=== PATIENT | male | born 1955 | race African-American/Black ===

== ENCOUNTER 2017-08-11 12:07 | Inpatient (IN) | payer OTHER ==
[2017-08-11 13:46] LABS: ALT (SGPT) Less than 7 U/L (8-55); AST (SGOT) 11 U/L (5-34); Albumin 3.4 g/dL (3.5-5.0); Alkaline Phosphatase 62 U/L (40-150); Anion Gap 22 mmol/L (10-20); BUN (Urea Nitrogen) 96 mg/dL (8.4-25.7); Bilirubin, Total 0.4 mg/dL (0.2-1.2); Calc. Creatinine Clearance 0 mL/min (70-130); Calcium 9.7 mg/dL (7.8-10.44); Carbon Dioxide 13 mmol/L (22-29); Chloride 103 mmol/L (98-107); Estimated GFR-MDRD 15; Glucose 75 mg/dL (70-105); Protein, Total 8.4 g/dL (6.0-8.3); Sodium 133 mmol/L (136-145)
[2017-08-11 13:55] LABS: #Eosinphils 0.3 thou/uL (0.0-0.7); #Lymphocytes 1.8 thou/uL (1.20-3.40); #Neutrophils 7.2 thou/uL (1.40-6.50); %Basophils 0.4 % (0.0-1.0); %Eosinophils 2.9 % (0.0-10.0); %Lymphocytes 17.6 % (21.0-51.0); %Monocytes 9.3 % (0.0-10.0); %Neutrophils 69.9 % (42.0-75.0); Hemoglobin 10.3 g/dL (14.0-18.0); Mean Corpuscular HGB CONC 32.2 g/dL (32.0-36.0); Mean Corpuscular Hemoglobin 29.3 pg (27.0-31.0); Mean Corpuscular Volume 90.9 fl (80.0-94.0); Mean Platelet Volume 5.7 fL (7.4-10.4); Platelet Count 357 thou/uL (130-400); RBC Distribution Width 14.1 % (11.5-14.5); Red Blood Cell (RBC) Count 3.51 mill/uL (4.70-6.10); White Blood Cell (WBC) Count 10.3 thou/uL (4.8-10.8)
[2017-08-11 14:21] LABS: Bilirubin Negative (Negative); Blood, Urine Large (Negative); Clarity CLOUDY (Clear); Glucose, Urine (Dipstick) Negative (Negative); Leukocyte Large (Negative); Nitrite Negative (Negative); Protein, Urine (Dipstick) 100 mg/dL (Neg-Trace); Specific Gravity, Urine 1.019 (1.002-1.036); Urobilinogen 0.2 mg/dL (0.2-1.0); pH, Urine 5.5 (5.0-9.0)
[2017-08-11 14:26] LABS: Bacteria/HPF 1+ HPF (None Seen); Hyaline Casts/LPF 0-3 HYALINE CAST LPF (0-3 Hyaline); Pathc Cast-AUWi Flag 0.13 (0-2.49); RBC/HPF GREATER THAN 50-TNTC HPF (0-3); Squamous Epithelial None Seen HPF (0-3)
--- NOTE | 2017-08-11 15:00 | RAD ---
PORTABLE CHEST: Date: 08/11/17 PROVIDED CLINICAL HISTORY: Cough. FINDINGS: Comparison made with the study dated 12/31/16. Cardiac and mediastinal silhouette is within normal limits. Lungs are free of suspicious opacity. The supine nature of the examination limits sensitivity for detection of pleural fluid and pneumothorax. Postoperative changes involving the lower thoracic spine again visualized. IMPRESSION: No evidence for an acute cardiopulmonary process with limitations as above. POS: MINDY
[2017-08-11] MEDS ORDERED: Sodium Chloride 0.9% 1,000 ML IV SCH ×3 (16:59→22:15)
[2017-08-11] MEDS ORDERED: Ondansetron ODT 4 MG TAB SL PRN (16:59)
[2017-08-11] MEDS ORDERED: Ondansetron HCl/PF 4 MG/2 ML Vial IVP PRN ×2 (16:59→17:52)
[2017-08-11] MEDS ORDERED: Loperamide HCl 2 MG CAP PO PRN (17:52)
[2017-08-11] MEDS ORDERED: Ondansetron ODT 4 MG TAB PO PRN (17:52)
[2017-08-11] MEDS ORDERED: HumaLOG 300 UNITS/3 ML VIAL SC PRN ×2 (17:52)
[2017-08-11] MEDS ORDERED: Dextrose 5% in Water 1,000 ML IV PRN (17:52)
[2017-08-11] MEDS ORDERED: Dextrose 50% Abboject 50 ML SYRINGE SLOW IVP PRN (17:52)
[2017-08-11] MEDS ORDERED: Vancomycin HCl 1.25 GM in Sodium Chloride 0.9% 250 ML 250 ML IVPB SCH (18:30)
[2017-08-11] MEDS: Sodium Chloride 0.9% 1,000 ML IV SCH ×2 (18:32→23:09)
[2017-08-11] MEDS: Acetaminophen 500 MG TAB PO PRN (18:32)
[2017-08-11] MEDS: cefTRIAXone\\ROCEPHIN 2 GM in Sodium Chloride 0.9% 100 ML IVPB SCH (18:40)
--- NOTE | 2017-08-11 19:10 | HP ---
DATE OF ADMISSION: 08/11/2017 PRIMARY CARE PROVIDER: Becky Bradford M.D. CHIEF COMPLAINT: Diarrhea. HISTORY OF PRESENT ILLNESS: This is a 62-year-old -[place] male, who presents to [facility] Emergency Department from [facility] where he is a current resident , complaining of approximately 3 days history of loose stools and decreased oral intake. The patient 's history is significant for paraplegia after a fall, sustaining a T11 Chance fracture. The patient sustained the injury and fracture in 2017 and is currently paraplegic, requiring 24-hour care. The patient states he has no sensation below his chest, but can move his upper extremities. The patient was unable to describe the quality of his diarrhea due to lack of sensation. The patient is also wit h a longstanding history of chronic sacral decubitus ulceration at stage 4. The patient also has a s uprapubic catheter placed in the last 2 to 3 months due to a neurogenic bladder. The patient denied any diamond fever, chills or rigors. The patient denied any increased shortness of breath, chest pain, hemoptysis or blood in his Hernandez catheter. The patient denied any exposure history and states his i mmunizations are current. In the emergency room, the patient underwent extensive evaluation and note d with hypotension on an initial presentation without tachycardia. The patient was given IV fluids x 2 liters with overall improvement in blood pressure with systolics sustaining over 100. During [facility]'s ER course after initial fluid resuscitation, the patient's blood pressure decreased into the 80 systolic, at which the patient underwent a left femoral vein central venous catheter placement for de finitive and reliable IV source. The patient was also noted with elevated creatinine above baseline at 4.70 with estimated GFR of 15. Review of the electronic medical record shows previous value of 0. 98 on 01/06/2017. The patient was treated for severe dehydration and hypotension, and referred to [facility] for admission. PAST MEDICAL HISTORY: 1. T11 Chance fracture with resultant lower extremity paraplegia. 2. Neurogenic bladder secondary to T11 Chance fracture with resultant lower extremity paraplegia wit h chronic suprapubic catheter. 3. Chronic anemia. 4. History of anticoagulation after bilateral deep venous thrombosis. 5. Moderate protein-calorie malnutrition. 6. Chronic stage 4 sacral decubitus ulceration. 7. History of alcohol abuse. PAST SURGICAL HISTORY: Status post IVC filter placement. CURRENT MEDICATIONS: Reviewing MAR from [facility] with final up to date medications is p ending. ALLERGIES: No known drug allergies. FAMILY HISTORY: No inheritable diseases per patient report. SOCIAL HISTORY: Resident of [facility]. Nonambulatory status. No current tobacco, alcoh ol or illicit drug use. Former heavy alcohol use. REVIEW OF SYSTEMS: The following complete review of systems was negative, unless otherwise mentioned in the HPI or below: Constitutional: Weight loss or gain, ability to conduct usual activities. Skin: Rash, itching. Eyes: Double vision, pain. ENT/Mouth: Nose bleeding, neck stiffness, pain, tenderness. Cardiovascular: Palpitations, dyspnea on exertion, orthopnea. Respiratory: Shortness of breath, wheezing, cough, hemoptysis, fever or night sweats. Gastrointestinal: Poor appetite, abdominal pain, heartburn, nausea, vomiting, constipation, or diarr hea. Genitourinary: Urgency, frequency, dysuria, nocturia. Musculoskeletal: Pain, swelling. Neurologic/Psychiatric: Anxiety, depression. Allergy/Immunologic: Skin rash, bleeding tendency. PHYSICAL EXAMINATION: VITAL SIGNS: Currently, blood pressure 98/52, pulse 95, respiratory rate 16, temperature 97.9 degree s Fahrenheit, O2 saturation 100% on room air. GENERAL APPEARANCE: This is a 62-year-old -[place] male, alert and oriented x3, responsive, in no acute distress. HEENT: Pupils are equal, round, and reactive to light and accommodation. Extraocular muscles are in tact. No scleral icterus, no conjunctival injection. Nares patent. OP is clear. Teeth in poor rep air. Multiple areas of periodontal disease. NECK: Supple, no cervical adenopathy, no thyromegaly, no carotid bruits, no JVD appreciated. Cervic al spine is with full active and passive range of motion. No meningeal signs appreciated. CHEST: Breath sounds are clear to auscultation bilaterally. CARDIOVASCULAR: S1, S2, without noted murmur. ABDOMEN: Rounded, soft, nontender, and nondistended. Bowel sounds are positive in all four quadrant s. There is no hepatosplenomegaly, no abdominal bruits, no rebound or guarding appreciated. GENITOURINARY: Suprapubic catheter in place with purulence at the catheter skin interface. Catheter tubing with purulent cloudy urine. MUSCULOSKELETAL: General atrophy of the lower extremities noted. Superficial ulcers on bilateral lo wer extremities with bandages in place. Pulses are palpable distally at the dorsalis pedis, posterio r tibial and popliteal arteries bilaterally. Capillary refill is less than 2 seconds. NEUROLOGIC: Paraplegia from the mid chest to the lower extremities. Moves upper extremities. Alert and oriented x3. The rest of the cranial nerves II-XII are grossly intact. PERTINENT LABORATORY AND X-RAY FINDINGS: Sodium 133, potassium 5.0, chloride 103, CO2 of 13, anion g ap 22, BUN 96, creatinine 4.70, estimated GFR 15, glucose 75. Lactic acid level 1.5, calcium 9.7, T of 11, ALT of 7, alkaline phosphatase 62, albumin 3.4. CBC showed a white blood cell count of 10.3 , hemoglobin 10.3, hematocrit 31.9, platelet count 357 with 70% neutrophils. Urinalysis dated 2017 showed specific gravity of 1.019, positive protein, positive blood, large leukocyte esterase wit h greater than 50 to too numerous to count wbc's and rbc's per high power field, 1+ bacteria noted. Portable chest x-ray dated 08/11/2017 showed no acute cardiopulmonary process. EKG dated 08/11/2017 by my interpretation shows sinus mechanism with heart rates in the 80s. Normal R-wave progression no tessa in the precordial leads. Normal axis. No acute ST-T wave changes appreciated. ASSESSMENT AND PLAN: 1. Suspected sepsis secondarily to urinary tract infection. The patient will be admitted to the Int ermediate Care Unit. We will continue sepsis protocol with vancomycin 1.25 grams x1 dose now and the n renally dose thereafter. Continue Rocephin 2 g IV q.24 hours. Blood and urine cultures pending. C ontinue sepsis protocol with serial lactate assessment. Continue intravenous normal saline at 125 mL per hour. 2. Hypotension. Suspect secondarily to suspected sepsis secondarily to urinary tract infection. Co ntinue IV fluid hydration and resuscitation. Avoid antihypertensive medications. Suspect also compo nent of severe dehydration. 3. Acute kidney injury secondary to volume depletion and suspected sepsis secondarily to urinary tra ct infection. Continue aggressive IV fluid hydration. Avoid nephrotoxic agents and contrast media. Serial creatinine assessment. 4. Metabolic acidosis secondary to suspected sepsis secondarily to urinary tract infection. We will continue IV fluid hydration as outlined previously. Continue treatment for underlying infectious pr ocess. Repeat CO2 level in the morning. 5. Hyponatremia. Questionable chronic component. We will continue intravenous normal saline and mo nitor serial sodiums. 6. Chronic normocytic anemia. Stable currently. No current evidence to suggest acute blood loss. Repeat CBC in the morning. 7. T11 Chance fracture with paraplegia. Chronic paraplegia. Continue supportive measures. Low air loss mattress. Heel protectors. 8. Stage 4 sacral decubitus ulcer. Chronic and present on admission. Wound Care consult for genera l evaluation and low air loss mattress for positional changes. 9. Prophylaxis. Sequential compression devices will be held due to lower extremity superficial ulce rs. Heparin 5000 units subcutaneously b.i.d. Pepcid 20 mg p.o. b.i.d. 10. Code status is FULL. Surrogate medical decision maker is Angel Flynn.
[2017-08-11] MEDS: Famotidine 20 MG TAB PO SCH (21:22)
[2017-08-11] MEDS: Heparin 5,000 UNITS/ML VIAL SC SCH (21:22)
[2017-08-12] MEDS ORDERED: Norepinephrine 8 MG in Sodium Chloride 0.9% 250 ML 250 ML IVPB SCH (00:15)
[2017-08-12] MEDS: Sodium Chloride 0.9% 1,000 ML IV SCH ×6 (03:38→22:15)
[2017-08-12 06:52] LABS: Hemoglobin 9.7 g/dL (14.0-18.0); Mean Corpuscular HGB CONC 32.9 g/dL (32.0-36.0); Mean Corpuscular Hemoglobin 29.5 pg (27.0-31.0); Mean Corpuscular Volume 89.6 fl (80.0-94.0); Mean Platelet Volume 5.2 fL (7.4-10.4); Platelet Count 376 thou/uL (130-400); RBC Distribution Width 14.1 % (11.5-14.5); Red Blood Cell (RBC) Count 3.28 mill/uL (4.70-6.10); White Blood Cell (WBC) Count 9.8 thou/uL (4.8-10.8)
[2017-08-12 07:33] LABS: ALT (SGPT) Less than 7 U/L (8-55); AST (SGOT) 10 U/L (5-34); Albumin 2.7 g/dL (3.5-5.0); Alkaline Phosphatase 49 U/L (40-150); Anion Gap 14 mmol/L (10-20); BUN (Urea Nitrogen) 78 mg/dL (8.4-25.7); Bilirubin, Total Less than 0.2 mg/dL (0.2-1.2); Calc. Creatinine Clearance 30 mL/min (70-130); Calcium 8.7 mg/dL (7.8-10.44); Carbon Dioxide 12 mmol/L (22-29); Chloride 117 mmol/L (98-107); Estimated GFR-MDRD 24; Globulin 4.3 g/dL (2.4-3.5); Glucose 78 mg/dL (70-105); Potassium 3.8 mmol/L (3.5-5.1); Sodium 139 mmol/L (136-145)
[2017-08-12 09:46] LABS: Band 2 % (5-11); Eosinophils 9 % (0-10); Lymphocytes 11 % (21-51); MDiff Complete? YES; Monocytes 14 % (0-10); Neutrophil 64 % (42-75); Polychromasia SLIGHT = 2-3 cells (100X) (0-2/hpf)
--- NOTE | 2017-08-12 10:19 | PDOC.PN ---
- Subjective Encounter Start Date: 08/12/17 Encounter Start Time: 10:16 Subjective: no complaints - Objective Resuscitation Status: Resuscitation Status FULL:Full Resuscitation MAR Reviewed: Yes Vital Signs & Weight: Vital Signs (12 hours) Temp Pulse Resp BP BP Pulse Ox 08/12/17 01:00 97.8 F 08/12/17 00:52 97.8 F 90 23 H 100 08/11/17 23:59 99.5 F 88 20 73/31 L 100 08/11/17 23:00 86/52 L Weight Admit Weight 186 lb 9.6 oz Weight 184 lb 4.903 oz Most Recent Monitor Data Heart Rate from ECG 100 NIBP 114/50 NIBP BP-Mean 66 Respiration from ECG 22 SpO2 100 I&O: 08/11/17 08/12/17 08/13/17 06:59 06:59 06:59 Intake Total 1833.3 Output Total 1275 Balance 558.3 Result Diagrams: 08/12/17 06:42 08/12/17 06:42 Additional Labs: Accuchecks 08/12/17 08/11/17 06:42 19:11 POC Glucose 88 86 Phys Exam - Physical Examination Constitutional: NAD Neck: no JVD Respiratory: clear to auscultation bilateral Cardiovascular: RRR, no significant murmur Gastrointestinal: soft, positive bowel sounds Musculoskeletal: no edema T11 paraplegia Dx/Plan (1) Sepsis Code(s): A41.9 - SEPSIS, UNSPECIFIED ORGANISM Status: Acute Qualifiers: Sepsis type: sepsis due to unspecified organism Qualified Code(s): A41.9 - Sepsis, unspecified organism (2) UTI (urinary tract infection) Status: Acute Qualifiers: Encounter type: subsequent encounter (3) ROJAS (acute kidney injury) Code(s): N17.9 - ACUTE KIDNEY FAILURE, UNSPECIFIED Status: Acute (4) Acidosis Code(s): E87.2 - ACIDOSIS Status: Acute (5) Paraplegia Code(s): G82.20 - PARAPLEGIA, UNSPECIFIED Status: Chronic (6) Lactic acidosis Code(s): E87.2 - ACIDOSIS Status: Resolved - Plan DVT proph w/heparin cont iv antibx, await C&S results -: cont iv fluids, steroids -: cont accu/ss * .
--- NOTE | 2017-08-12 10:35 | CON ---
DATE OF CONSULTATION: 08/12/2017 This is a 62-year-old gentleman who has seen Dr. Russo in the past. He presents with a several day history of diarrhea, dehydration, hypertension. He has been receiving IV fluids. His blood pressure is relatively low. He is awake, alert, responsi ve. PAST MEDICAL HISTORY: Extensively outlined in his previous medical record pertinent for previous PE with a filter in place, history of previous hematuria, history of bladder dysfunction status post sup rapubic, history of osteo, paraplegia, reflux, muscle wasting. PAST SURGICAL HISTORY: Two back. SOCIAL HISTORY: No history of alcohol or tobacco abuse. MEDICATIONS: His list of medicine from home include Zantac 150, Xarelto 20, lisinopril 5, Lasix 80 b .i.d., tramadol, zinc, thiamine, folic acid, ascorbic acid. He is in a half-way. REVIEW OF SYSTEMS: Other extensively well outlined, 10 point negative. I reviewed all of his old medical records. No family members to get additional information. PHYSICAL EXAMINATION: VITAL SIGNS: Blood pressure is low, systolic is 88-90 on Levophed, pulse 118. He is afebrile. CHEST: Chest revealed decreased breath sounds, no wheezing. CARDIAC: Normal S1, S2. ABDOMEN: Soft. LABORATORY: White count is 9,000, H&H 9 and 27, platelet count 376. Creatinine is 3, BUN is 78, bas osvaldo BUN and creatinine have been normal in 2017. Albumin level is 2.7. IMPRESSION: 1. Profuse diarrhea. 2. Abnormal chest x-ray. 3. Paraplegia. 4. Hematuria. 5. Previous PE with filter in place. PLAN: been ordered. He may very well have relative adrenal insufficiency. I have started hyd rocortisone. Continue antibiotics, will deescalate once we get all cultures back. Continue hydratio n. Previously has Enterococcus in his urine, probably from colonization. I will follow. Forty-five minute critical care and time.
[2017-08-12] MEDS: Heparin 5,000 UNITS/ML VIAL SC SCH ×2 (11:20→20:26)
[2017-08-12] MEDS: Hydrocortisone Sod Succ/PF 100 mg/2 ml Vial IVP SCH ×3 (11:20→22:13)
[2017-08-12] MEDS: cefTRIAXone\\ROCEPHIN 2 GM in Sodium Chloride 0.9% 100 ML IVPB SCH (20:25)
[2017-08-12] MEDS: Famotidine 20 MG TAB PO SCH (20:25)
[2017-08-12 20:29] LABS: Vancomycin, Random 11.3 ug/mL (See Comment)
[2017-08-12] MEDS ORDERED: Vancomycin HCl 1 GM in Premix Bag 1 BAG IVPB SCH (21:15)
[2017-08-13] MEDS: Hydrocortisone Sod Succ/PF 100 mg/2 ml Vial IVP SCH ×4 (04:59→23:40)
[2017-08-13] MEDS: Sodium Chloride 0.9% 1,000 ML IV SCH ×6 (05:00→21:55)
--- NOTE | 2017-08-13 09:21 | PDOC.PN ---
- Subjective Encounter Start Date: 08/13/17 Encounter Start Time: 09:20 Subjective: alert, diarhea better - Objective Resuscitation Status: Resuscitation Status FULL:Full Resuscitation MAR Reviewed: Yes Vital Signs & Weight: Vital Signs (12 hours) Temp Pulse Resp 08/13/17 08:00 97.5 F L 56 L 17 08/13/17 05:00 98.2 F 08/13/17 00:00 97.7 F Weight Admit Weight 186 lb 9.6 oz Weight 183 lb 6.793 oz Most Recent Monitor Data Heart Rate from ECG 83 NIBP 113/55 NIBP BP-Mean 67 Respiration from ECG 18 SpO2 100 I&O: 08/12/17 08/13/17 08/14/17 06:59 06:59 06:59 Intake Total 1833.3 6142 Output Total 1275 2930 60 Balance 558.3 3212 -60 Result Diagrams: 08/12/17 06:42 08/12/17 06:42 Additional Labs: Accuchecks 08/13/17 08/13/17 08/12/17 07:33 06:24 20:44 POC Glucose 123 H 113 H 179 H 08/12/17 17:37 POC Glucose 99 Phys Exam - Physical Examination Neck: no JVD Respiratory: clear to auscultation bilateral Cardiovascular: RRR, no significant murmur Gastrointestinal: soft, non-tender, positive bowel sounds Musculoskeletal: edema present Dx/Plan (1) Sepsis Code(s): A41.9 - SEPSIS, UNSPECIFIED ORGANISM Status: Acute Qualifiers: Sepsis type: sepsis due to unspecified organism Qualified Code(s): A41.9 - Sepsis, unspecified organism (2) UTI (urinary tract infection) Status: Acute Qualifiers: Encounter type: subsequent encounter (3) ROJAS (acute kidney injury) Code(s): N17.9 - ACUTE KIDNEY FAILURE, UNSPECIFIED Status: Acute (4) Acidosis Code(s): E87.2 - ACIDOSIS Status: Acute (5) Paraplegia Code(s): G82.20 - PARAPLEGIA, UNSPECIFIED Status: Chronic (6) Diarrhea Code(s): R19.7 - DIARRHEA, UNSPECIFIED Status: Acute - Plan C&S pending, cont iv antibx -: stool for c diff -: cbc, cmp today -: cont iv fluids * .
[2017-08-13] MEDS: Heparin 5,000 UNITS/ML VIAL SC SCH ×2 (09:26→20:08)
[2017-08-13 10:02] LABS: #Lymphocytes 0.6 thou/uL (1.20-3.40); #Monocytes 0.4 thou/uL (0.11-0.59); #Neutrophils 6.4 thou/uL (1.40-6.50); %Basophils 0.3 % (0.0-1.0); %Eosinophils 0.4 % (0.0-10.0); %Lymphocytes 8.6 % (21.0-51.0); %Monocytes 5.3 % (0.0-10.0); %Neutrophils 85.5 % (42.0-75.0); Hemoglobin 8.5 g/dL (14.0-18.0); Mean Corpuscular HGB CONC 32.2 g/dL (32.0-36.0); Mean Corpuscular Hemoglobin 29.5 pg (27.0-31.0); Mean Corpuscular Volume 91.5 fl (80.0-94.0); Mean Platelet Volume 5.8 fL (7.4-10.4); Platelet Count 330 thou/uL (130-400); RBC Distribution Width 14.3 % (11.5-14.5); Red Blood Cell (RBC) Count 2.86 mill/uL (4.70-6.10); White Blood Cell (WBC) Count 7.4 thou/uL (4.8-10.8)
[2017-08-13 10:32] LABS: ALT (SGPT) Less than 7 U/L (8-55); AST (SGOT) 8 U/L (5-34); Albumin 2.5 g/dL (3.5-5.0); Alkaline Phosphatase 44 U/L (40-150); Anion Gap 12 mmol/L (10-20); BUN (Urea Nitrogen) 53 mg/dL (8.4-25.7); Bilirubin, Total Less than 0.2 mg/dL (0.2-1.2); Calc. Creatinine Clearance 50 mL/min (70-130); Calcium 8.3 mg/dL (7.8-10.44); Carbon Dioxide 12 mmol/L (22-29); Chloride 122 mmol/L (98-107); Estimated GFR-MDRD 46; Globulin 4.1 g/dL (2.4-3.5); Glucose 152 mg/dL (70-105); Potassium 3.2 mmol/L (3.5-5.1); Protein, Total 6.6 g/dL (6.0-8.3); Sodium 143 mmol/L (136-145)
--- NOTE | 2017-08-13 11:25 | PRG ---
DATE OF SERVICE: 08/13/2017 He is awake, alert, responsive this morning, in no distress. All cultures are negative. His diarrhea has pretty much resolved. PHYSICAL EXAMINATION: VITAL SIGNS: Blood pressure is 120/80, pulse 83, O2 sats 100%. CHEST: Chest reveals decreased breath sounds, no wheezing. CARDIAC: Normal S1, S2. ABDOMEN: Soft. Glucose 123. IMPRESSION: 1. Diarrhea, resolved. 2. Dehydration. 3. Hypotension, resolved. 4. adrenal insuffiency,<relative.>. 5. Possible urinary tract infection. I would deescalate antibiotics. Continue low dose steroids. I will follow. He can be transferred out of the ICU. [facility]ITAL[facility]
--- NOTE | 2017-08-13 11:46 | PQF ---
CLINICAL DOCUMENTATION IMPROVEMENT CLARIFICATION FORM: ICD-10 Updated PLEASE DO AN ADDENDUM TO THE PROGRESS NOTE WITH ANY DOCUMENTATION UPDATES OR ADDITIONS AND CARRY THROUGH TO DC SUMMARY. THANK YOU. DATE: 08/13 ATTN: DR. ARIEL LUNA Please exercise your independent, professional judgment in responding to the clarification form. Clinical indicators are provided on the bottom of this form for your review. Please check appropriate box(s): [ x ] UTI please specify if due to or related to (as applicable): [ x ] Suprapubic catheter [ ] Not r/t Suprapubic catheter [ ] Unable to determine etiology [ x ] Other diagnosis __sepsis syndrome [ ] Unable to determine For continuity of documentation, please document condition throughout progress notes and discharge summary. Thank You. CLINICAL INDICATORS - SIGNS / SYMPTOMS / LABS PHYSICIAN H&P DOCUMENTATION 08/11: PHYSICAL EXAMINATION: GENITOURINARY: SUPRAPUBIC CATHETER IN PLACE W/PURULENCE AT THE CATHETER SKIN INTERFACE. CATHETER TUBING W/PURULENT CLOUDY URINE. ASSESSMENT & PLAN: 1) SUSPECTED SEPSIS 2/2 TO UTI PHYSICIAN PN 08/12 & : DX/PLAN: 2) ACUTE UTI URINALYSIS 08/11: LARGE BLOOD, LARGE LEUKOCYTE ESTERASE, WBC TNTC, 1+ BACTERIA URINE CX: PSEUDOMONAS AERUGINOSA, GNR RISK FACTORS: HX NEUROGENIC BLADDER W/SUPRAPUBIC CATHETER PARAPLEGIA FROM T-12 DOWN TREATMENT: IV ANTIBIOTICS (ROCEPHIN & VANCOMYCIN 08/11 - PRESENT) IVF (NS 08/11 - PRESENT) THANK YOU! Yuli (This form is maintained as a part of the permanent medical record) 2014 [employer]. All Rights Reserved Yuli Garcia RN, BSN [email or web address] Office: [phone] [facility]ENTER[facility]
[2017-08-13] MEDS: Acetaminophen 500 MG TAB PO PRN (16:36)
[2017-08-13] MEDS ORDERED: Vancomycin HCl 1.5 GM in Sodium Chloride 0.9% 250 ML 300 ML IVPB SCH (18:00)
[2017-08-13] MEDS: Famotidine 20 MG TAB PO SCH (20:08)
[2017-08-13] MEDS ORDERED: Vancomycin HCl 1 GM in Premix Bag 1 BAG IVPB SCH (21:00)
[2017-08-13] MEDS: cefTRIAXone\\ROCEPHIN 2 GM in Sodium Chloride 0.9% 100 ML IVPB SCH (21:07)
[2017-08-14] MEDS: Sodium Chloride 0.9% 1,000 ML IV SCH ×4 (03:22→16:50)
[2017-08-14] MEDS: Hydrocortisone Sod Succ/PF 100 mg/2 ml Vial IVP SCH ×2 (04:36→10:29)
[2017-08-14 05:46] LABS: Anion Gap 10 mmol/L (10-20); BUN (Urea Nitrogen) 43 mg/dL (8.4-25.7); Calc. Creatinine Clearance 67 mL/min (70-130); Carbon Dioxide 13 mmol/L (22-29); Chloride 123 mmol/L (98-107); Estimated GFR-MDRD 64; Glucose 130 mg/dL (70-105); Sodium 143 mmol/L (136-145)
[2017-08-14 05:50] LABS: Potassium 2.9 mmol/L (3.5-5.1)
[2017-08-14] MEDS ORDERED: Potassium Chloride 20 MEQ TAB PO SCH ×2 (06:15→09:15)
[2017-08-14] MEDS ORDERED: Potassium Chloride 40 MEQ in Sodium Chloride 0.9% 250 ML 250 ML IVPB SCH (06:30)
--- NOTE | 2017-08-14 09:12 | PDOC.PN ---
- Subjective Encounter Start Date: 08/14/17 Encounter Start Time: 09:10 Subjective: no complaints - Objective Resuscitation Status: Resuscitation Status FULL:Full Resuscitation MAR Reviewed: Yes Vital Signs & Weight: Vital Signs (12 hours) Temp Pulse Resp BP BP Pulse Ox 08/14/17 07:36 97.7 F 50 L 16 143/70 H 100 08/14/17 04:00 97.5 F L 49 L 16 141/68 H 96 08/14/17 01:58 53 L 08/14/17 00:00 97.6 F 46 L 16 139/68 98 Weight Admit Weight 186 lb 9.6 oz Weight 211 lb 12.8 oz Most Recent Monitor Data Heart Rate from ECG 54 NIBP 107/39 NIBP BP-Mean 48 Respiration from ECG 19 SpO2 100 I&O: 08/13/17 08/14/17 08/15/17 06:59 06:59 06:59 Intake Total 6142 4061 Output Total 2930 1680 Balance 3212 2381 Result Diagrams: 08/13/17 09:56 08/14/17 05:08 Additional Labs: Accuchecks 08/14/17 08/13/17 08/13/17 04:25 20:09 16:44 POC Glucose 139 H 160 H 155 H 08/13/17 12:05 POC Glucose 120 H Phys Exam - Physical Examination Neck: no JVD Respiratory: clear to auscultation bilateral Cardiovascular: RRR, no significant murmur Gastrointestinal: soft, non-tender, positive bowel sounds Musculoskeletal: edema present Dx/Plan (1) Sepsis Code(s): A41.9 - SEPSIS, UNSPECIFIED ORGANISM Status: Acute Qualifiers: Sepsis type: sepsis due to unspecified organism Qualified Code(s): A41.9 - Sepsis, unspecified organism (2) UTI (urinary tract infection) Status: Acute Qualifiers: Encounter type: subsequent encounter Comment: pseudomonas (3) ROJAS (acute kidney injury) Code(s): N17.9 - ACUTE KIDNEY FAILURE, UNSPECIFIED Status: Acute (4) Acidosis Code(s): E87.2 - ACIDOSIS Status: Acute (5) Paraplegia Code(s): G82.20 - PARAPLEGIA, UNSPECIFIED Status: Chronic (6) Diarrhea Code(s): R19.7 - DIARRHEA, UNSPECIFIED Status: Acute (7) Hypokalemia Code(s): E87.6 - HYPOKALEMIA Status: Acute - Plan pseudomonas UTI- cefepime iv pending sensitivities -: renal fcn improving, cont iv fluids, monitor BMP -: K+ 4o meq po daily * .
[2017-08-14] MEDS: Cefepime 2 GM, Syringe 2.5 ML in Sodium Chloride 0.9% 10 ML SLOW IVP SCH ×2 (10:26→20:29)
[2017-08-14] MEDS: Heparin 5,000 UNITS/ML VIAL SC SCH ×2 (10:32→20:29)
--- NOTE | 2017-08-14 11:08 | PRG ---
DATE OF SERVICE: 08/14/2017 PHYSICAL EXAMINATION: VITAL SIGNS: Blood pressure 143/70, O2 sat 100%, respirations 20, temperature 97. No further loose stools. CHEST: Chest revealed decreased breath sounds, no wheezing. CARDIAC: Normal S1, S2. His creatinine 1.37. Urine is presumably growing Pseudomonas, gram negative rods per the likely is c olonization from his suprapubic catheter. IMPRESSION: 1. Dehydration, improved. 2. Paraplegia. 3. Renal failure. PLAN: Suggest switching over to oral antibiotics. Pseudomonas more than likely colonization. From a pulmonary standpoint, he can discharge home anytime. Pulmonary will follow from a distance. Please call if needed.
[2017-08-14] MEDS: Acetaminophen 500 MG TAB PO PRN (16:18)
[2017-08-14] MEDS: Famotidine 20 MG TAB PO SCH (20:29)
[2017-08-14] MEDS ORDERED: Cefepime 2 GM in Sodium Chloride 0.9% 100 ML IVPB SCH (21:00)
[2017-08-15] MEDS: Sodium Chloride 0.9% 1,000 ML IV SCH ×2 (02:59→03:36)
[2017-08-15 05:42] LABS: Anion Gap 8 mmol/L (10-20); BUN (Urea Nitrogen) 37 mg/dL (8.4-25.7); Calc. Creatinine Clearance 94 mL/min (70-130); Calcium 7.9 mg/dL (7.8-10.44); Carbon Dioxide 13 mmol/L (22-29); Estimated GFR-MDRD 79; Glucose 87 mg/dL (70-105); Potassium 3.4 mmol/L (3.5-5.1); Sodium 144 mmol/L (136-145)
[2017-08-15 05:52] LABS: Chloride 126 mmol/L (98-107)
[2017-08-15] MEDS: Heparin 5,000 UNITS/ML VIAL SC SCH ×2 (08:15→20:14)
[2017-08-15] MEDS: Potassium Chloride 20 MEQ TAB PO SCH (08:16)
[2017-08-15] MEDS: Cefepime 2 GM, Syringe 2.5 ML in Sodium Chloride 0.9% 10 ML SLOW IVP SCH ×2 (09:33→20:14)
--- NOTE | 2017-08-15 10:12 | PDOC.PN ---
- Subjective Encounter Start Date: 08/15/17 Encounter Start Time: 10:10 Subjective: swelling all over - Objective Resuscitation Status: Resuscitation Status FULL:Full Resuscitation MAR Reviewed: Yes Vital Signs & Weight: Vital Signs (12 hours) Temp Pulse Resp BP Pulse Ox 08/15/17 08:00 97.5 F L 80 18 140/75 100 Weight Admit Weight 186 lb 9.6 oz Weight 215 lb 8 oz Most Recent Monitor Data Heart Rate from ECG 54 NIBP 107/39 NIBP BP-Mean 48 Respiration from ECG 19 SpO2 100 I&O: 08/14/17 08/15/17 08/16/17 06:59 06:59 06:59 Intake Total 4061 4990 Output Total 1680 1550 Balance 2381 3440 Result Diagrams: 08/13/17 09:56 08/15/17 05:05 Additional Labs: Accuchecks 08/15/17 08/14/17 08/14/17 04:45 20:46 16:01 POC Glucose 94 110 92 08/14/17 12:10 POC Glucose 119 H Phys Exam - Physical Examination Neck: no JVD Respiratory: clear to auscultation bilateral Cardiovascular: RRR, no significant murmur Gastrointestinal: soft, non-tender, positive bowel sounds Musculoskeletal: edema present Dx/Plan (1) Sepsis Code(s): A41.9 - SEPSIS, UNSPECIFIED ORGANISM Status: Acute Qualifiers: Sepsis type: sepsis due to unspecified organism Qualified Code(s): A41.9 - Sepsis, unspecified organism (2) UTI (urinary tract infection) Status: Acute Qualifiers: Encounter type: subsequent encounter Comment: pseudomonas (3) ROJAS (acute kidney injury) Code(s): N17.9 - ACUTE KIDNEY FAILURE, UNSPECIFIED Status: Acute (4) Acidosis Code(s): E87.2 - ACIDOSIS Status: Acute (5) Paraplegia Code(s): G82.20 - PARAPLEGIA, UNSPECIFIED Status: Chronic (6) Diarrhea Code(s): R19.7 - DIARRHEA, UNSPECIFIED Status: Acute (7) Hypokalemia Code(s): E87.6 - HYPOKALEMIA Status: Acute - Plan DC iv fluids, iv lasix -: cont iv antibx, eventual transition to ceftin po * .
[2017-08-15] MEDS ORDERED: Furosemide 40 MG/4 ML VIAL SLOW IVP SCH (10:15)
[2017-08-15] MEDS ORDERED: Polyethylene Glycol 3350 17 GM Packet PO SCH (10:15)
[2017-08-15] MEDS: Famotidine 20 MG TAB PO SCH (20:14)
[2017-08-16 05:59] LABS: Anion Gap 7 mmol/L (10-20); BUN (Urea Nitrogen) 30 mg/dL (8.4-25.7); Calc. Creatinine Clearance 121 mL/min (70-130); Calcium 8.2 mg/dL (7.8-10.44); Carbon Dioxide 17 mmol/L (22-29); Chloride 122 mmol/L (98-107); Estimated GFR-MDRD Greater than 90; Glucose 86 mg/dL (70-105); Potassium 3.6 mmol/L (3.5-5.1); Sodium 142 mmol/L (136-145)
[2017-08-16] MEDS: Potassium Chloride 20 MEQ TAB PO SCH (08:49)
[2017-08-16] MEDS: Heparin 5,000 UNITS/ML VIAL SC SCH ×2 (08:58→20:13)
[2017-08-16] MEDS: Cefepime 2 GM, Syringe 2.5 ML in Sodium Chloride 0.9% 10 ML SLOW IVP SCH ×2 (09:09→20:14)
--- NOTE | 2017-08-16 10:10 | PDOC.PN ---
- Subjective Encounter Start Date: 08/16/17 Encounter Start Time: 10:07 Subjective: feels like something in left eye - Objective Resuscitation Status: Resuscitation Status FULL:Full Resuscitation MAR Reviewed: Yes Vital Signs & Weight: Vital Signs (12 hours) Temp Pulse Resp BP Pulse Ox 08/16/17 08:00 97.7 F 94 18 115/71 94 L Weight Admit Weight 186 lb 9.6 oz Weight 213 lb 8 oz Most Recent Monitor Data Heart Rate from ECG 54 NIBP 107/39 NIBP BP-Mean 48 Respiration from ECG 19 SpO2 100 I&O: 08/15/17 08/16/17 08/17/17 06:59 06:59 06:59 Intake Total 4990 2390 Output Total 4948 9600 804 Balance 0066 -2048 -850 Result Diagrams: 08/13/17 09:56 08/16/17 05:29 Additional Labs: Accuchecks 08/16/17 08/15/17 08/15/17 05:01 20:12 16:10 POC Glucose 80 86 67 L 08/15/17 11:33 POC Glucose 81 Phys Exam - Physical Examination left lateral schleral hemorrhage Neck: no JVD Respiratory: clear to auscultation bilateral Cardiovascular: RRR, no significant murmur Gastrointestinal: soft, non-tender, positive bowel sounds Musculoskeletal: edema present Dx/Plan (1) Sepsis Code(s): A41.9 - SEPSIS, UNSPECIFIED ORGANISM Status: Acute Qualifiers: Sepsis type: sepsis due to unspecified organism Qualified Code(s): A41.9 - Sepsis, unspecified organism (2) UTI (urinary tract infection) Status: Acute Qualifiers: Encounter type: subsequent encounter Comment: pseudomonas (3) ROJAS (acute kidney injury) Code(s): N17.9 - ACUTE KIDNEY FAILURE, UNSPECIFIED Status: Acute (4) Acidosis Code(s): E87.2 - ACIDOSIS Status: Acute (5) Paraplegia Code(s): G82.20 - PARAPLEGIA, UNSPECIFIED Status: Chronic (6) Diarrhea Code(s): R19.7 - DIARRHEA, UNSPECIFIED Status: Acute (7) Hypokalemia Code(s): E87.6 - HYPOKALEMIA Status: Acute - Plan C&S 2 species, both sensitive to cefepime. cont cefepime -: reassured scheral hematoma not dangerous, just uncomfortable * .
[2017-08-16] MEDS: Famotidine 20 MG TAB PO SCH (20:13)
[2017-08-17 05:19] LABS: Anion Gap 9 mmol/L (10-20); BUN (Urea Nitrogen) 25 mg/dL (8.4-25.7); Calc. Creatinine Clearance 127 mL/min (70-130); Calcium 8.2 mg/dL (7.8-10.44); Carbon Dioxide 16 mmol/L (22-29); Chloride 120 mmol/L (98-107); Estimated GFR-MDRD Greater than 90; Glucose 91 mg/dL (70-105); Potassium 3.7 mmol/L (3.5-5.1); Sodium 141 mmol/L (136-145)
[2017-08-17] MEDS: Potassium Chloride 20 MEQ TAB PO SCH (09:14)
[2017-08-17] MEDS: Heparin 5,000 UNITS/ML VIAL SC SCH ×2 (09:15→21:09)
[2017-08-17] MEDS: Cefepime 2 GM, Syringe 2.5 ML in Sodium Chloride 0.9% 10 ML SLOW IVP SCH ×2 (09:15→21:09)
--- NOTE | 2017-08-17 12:37 | EKG ---
Test Reason : Blood Pressure : / mmHG Vent. Rate : 079 BPM Atrial Rate : 079 BPM P-R Int : 158 ms QRS Dur : 070 ms QT Int : 364 ms P-R-T Axes : 042 059 052 degrees QTc Int : 417 ms Sinus rhythm with Premature supraventricular complexes Nonspecific T wave abnormality Abnormal ECG Confirmed by YAQUELIN ZAMBRANO, ADOLFO ([id number]), business editor SCOOBY MURGUIA ([id number]) on 08/17/2017 12:36:08 PM Referred By: Confirmed By:ADOLFO JAMISON MD
--- NOTE | 2017-08-17 16:32 | PDOC.PN ---
- Subjective Encounter Start Date: 08/17/17 Encounter Start Time: 16:30 Subjective: seen and examined complaining of being bloated - Objective Resuscitation Status: Resuscitation Status FULL:Full Resuscitation Vital Signs & Weight: Vital Signs (12 hours) Temp Pulse Resp BP Pulse Ox 08/17/17 08:00 97.8 F 86 16 08/17/17 07:15 97.8 F 86 16 119/68 99 Weight Admit Weight 186 lb 9.6 oz Weight 212 lb 14.4 oz Most Recent Monitor Data Heart Rate from ECG 54 NIBP 107/39 NIBP BP-Mean 48 Respiration from ECG 19 SpO2 100 I&O: 08/16/17 08/17/17 08/18/17 06:59 06:59 06:59 Intake Total 2390 1250 Output Total 7150 3650 Balance -4760 -2400 Result Diagrams: 08/13/17 09:56 08/17/17 04:18 Additional Labs: Accuchecks 08/17/17 08/17/17 08/16/17 11:24 05:20 20:03 POC Glucose 101 98 84 Phys Exam - Physical Examination Constitutional: NAD HEENT: PERRLA, moist MMs, sclera anicteric, TM's clear, oral pharynx no lesions Neck: no nodes, no JVD, supple, full ROM Respiratory: no wheezing, no rales, no rhonchi, clear to auscultation bilateral Cardiovascular: RRR, no significant murmur, no rub Gastrointestinal: soft, non-tender, no distention, positive bowel sounds Musculoskeletal: pulses present, edema present Dx/Plan (1) Diarrhea Code(s): R19.7 - DIARRHEA, UNSPECIFIED Status: Acute (2) Hypokalemia Code(s): E87.6 - HYPOKALEMIA Status: Acute (3) Sepsis Code(s): A41.9 - SEPSIS, UNSPECIFIED ORGANISM Status: Acute Qualifiers: Sepsis type: sepsis due to unspecified organism Qualified Code(s): A41.9 - Sepsis, unspecified organism (4) UTI (urinary tract infection) Status: Acute Qualifiers: Encounter type: subsequent encounter Comment: pseudomonas (5) ROJAS (acute kidney injury) Code(s): N17.9 - ACUTE KIDNEY FAILURE, UNSPECIFIED Status: Acute (6) Acidosis Code(s): E87.2 - ACIDOSIS Status: Acute (7) Acute bilateral deep vein thrombosis (DVT) of iliac veins of lower extremities Code(s): I82.423 - ACUTE EMBOLISM AND THROMBOSIS OF ILIAC VEIN, BILATERAL Status: Acute (8) Anemia Code(s): D64.9 - ANEMIA, UNSPECIFIED Status: Acute (9) SIRS (systemic inflammatory response syndrome) Code(s): R65.10 - SIRS OF NON-INFECTIOUS ORIGIN W/O ACUTE ORGAN DYSFUNCTION Status: Acute - Plan plan discussed w/ family, continue antibiotics, PT/OT, social services analyst On cefepime -: possibly to be d/c home on cipro -: Diuresis * .
[2017-08-17] MEDS ORDERED: Furosemide 40 MG/4 ML VIAL SLOW IVP SCH (17:00)
[2017-08-17] MEDS: Famotidine 20 MG TAB PO SCH (21:09)
[2017-08-18] MEDS: Furosemide 40 MG/4 ML VIAL SLOW IVP SCH ×2 (05:52→15:17)
[2017-08-18 06:24] LABS: Anion Gap 10 mmol/L (10-20); BUN (Urea Nitrogen) 24 mg/dL (8.4-25.7); Calc. Creatinine Clearance 113 mL/min (70-130); Calcium 8.6 mg/dL (7.8-10.44); Carbon Dioxide 18 mmol/L (22-29); Chloride 116 mmol/L (98-107); Estimated GFR-MDRD Greater than 90; Glucose 87 mg/dL (70-105); Potassium 3.5 mmol/L (3.5-5.1); Sodium 140 mmol/L (136-145)
--- NOTE | 2017-08-18 09:33 | PDOC.PN ---
- Subjective Encounter Start Date: 08/18/17 Encounter Start Time: 09:32 Subjective: Seen and examined no new complaint - Objective Resuscitation Status: Resuscitation Status FULL:Full Resuscitation Vital Signs & Weight: Vital Signs (12 hours) Temp Pulse Resp BP BP Pulse Ox 08/18/17 07:35 97.7 F 95 18 99/64 100 08/18/17 05:00 93 92/59 L 88/55 L Weight Admit Weight 186 lb 9.6 oz Weight 195 lb 14.4 oz Most Recent Monitor Data Heart Rate from ECG 54 NIBP 107/39 NIBP BP-Mean 48 Respiration from ECG 19 SpO2 100 I&O: 08/17/17 08/18/17 08/19/17 06:59 06:59 06:59 Intake Total 1250 440 Output Total 3650 4975 Balance -8292 -2345 Result Diagrams: 08/13/17 09:56 08/18/17 05:50 Additional Labs: Accuchecks 08/18/17 08/17/17 08/17/17 05:48 21:35 16:10 POC Glucose 88 84 79 08/17/17 11:24 POC Glucose 101 Phys Exam - Physical Examination Constitutional: NAD HEENT: PERRLA, moist MMs, sclera anicteric, TM's clear, oral pharynx no lesions Neck: no nodes, no JVD, supple, full ROM Respiratory: no wheezing, no rales, no rhonchi, clear to auscultation bilateral Cardiovascular: RRR, no significant murmur, no rub Gastrointestinal: soft, non-tender, no distention, positive bowel sounds Musculoskeletal: pulses present, edema present Dx/Plan (1) Diarrhea Code(s): R19.7 - DIARRHEA, UNSPECIFIED Status: Acute (2) Hypokalemia Code(s): E87.6 - HYPOKALEMIA Status: Acute (3) Sepsis Code(s): A41.9 - SEPSIS, UNSPECIFIED ORGANISM Status: Acute Qualifiers: Sepsis type: sepsis due to unspecified organism Qualified Code(s): A41.9 - Sepsis, unspecified organism (4) UTI (urinary tract infection) Status: Acute Qualifiers: Encounter type: subsequent encounter Comment: pseudomonas (5) ROJAS (acute kidney injury) Code(s): N17.9 - ACUTE KIDNEY FAILURE, UNSPECIFIED Status: Acute (6) Acidosis Code(s): E87.2 - ACIDOSIS Status: Acute (7) Acute bilateral deep vein thrombosis (DVT) of iliac veins of lower extremities Code(s): I82.423 - ACUTE EMBOLISM AND THROMBOSIS OF ILIAC VEIN, BILATERAL Status: Acute (8) Anemia Code(s): D64.9 - ANEMIA, UNSPECIFIED Status: Acute (9) SIRS (systemic inflammatory response syndrome) Code(s): R65.10 - SIRS OF NON-INFECTIOUS ORIGIN W/O ACUTE ORGAN DYSFUNCTION Status: Acute - Plan plan discussed w/ family, continue antibiotics, PT/OT, director social Continue diuresis -: Monitor vital signs/Bp closely and replete K accordingly * .
[2017-08-18] MEDS: Heparin 5,000 UNITS/ML VIAL SC SCH ×2 (10:50→21:53)
[2017-08-18] MEDS: Potassium Chloride 20 MEQ TAB PO SCH (10:59)
[2017-08-18] MEDS: Cefepime 2 GM, Syringe 2.5 ML in Sodium Chloride 0.9% 10 ML SLOW IVP SCH ×2 (11:04→21:54)
[2017-08-18] MEDS: Famotidine 20 MG TAB PO SCH (21:53)
[2017-08-19 04:52] LABS: Anion Gap 10 mmol/L (10-20); BUN (Urea Nitrogen) 25 mg/dL (8.4-25.7); Calc. Creatinine Clearance 108 mL/min (70-130); Calcium 8.5 mg/dL (7.8-10.44); Carbon Dioxide 20 mmol/L (22-29); Chloride 112 mmol/L (98-107); Estimated GFR-MDRD Greater than 90; Glucose 91 mg/dL (70-105); Potassium 3.6 mmol/L (3.5-5.1); Sodium 138 mmol/L (136-145)
[2017-08-19] MEDS: Furosemide 40 MG/4 ML VIAL SLOW IVP SCH (06:12)
[2017-08-19] MEDS: Heparin 5,000 UNITS/ML VIAL SC SCH ×2 (09:16→20:50)
[2017-08-19] MEDS: Potassium Chloride 20 MEQ TAB PO SCH (09:16)
[2017-08-19] MEDS: Cefepime 2 GM, Syringe 2.5 ML in Sodium Chloride 0.9% 10 ML SLOW IVP SCH ×2 (09:17→20:50)
--- NOTE | 2017-08-19 12:56 | PDOC.PN ---
- Subjective Encounter Start Date: 08/19/17 Encounter Start Time: 12:55 Patient seen and examined, no new issues, all questions answered, no family at bedside. - Objective Resuscitation Status: Resuscitation Status FULL:Full Resuscitation MAR Reviewed: Yes Vital Signs & Weight: Vital Signs (12 hours) Temp Pulse Resp BP BP Pulse Ox 08/19/17 08:00 97.5 F L 96 12 08/19/17 07:49 97.5 F L 96 12 87/44 L 96 08/19/17 04:23 82/47 L 08/19/17 04:22 98.7 F 91 16 84/52 L 97 Weight Admit Weight 186 lb 9.6 oz Weight 194 lb 6 oz Most Recent Monitor Data Heart Rate from ECG 54 NIBP 107/39 NIBP BP-Mean 48 Respiration from ECG 19 SpO2 100 I&O: 08/18/17 08/19/17 08/20/17 06:59 06:59 06:59 Intake Total 440 Output Total 9162 6579 Balance -1680 -6627 Result Diagrams: 08/13/17 09:56 08/19/17 04:00 Additional Labs: Accuchecks 08/19/17 08/18/17 08/18/17 11:44 19:52 15:27 POC Glucose 130 H 113 H 86 08/18/17 11:25 POC Glucose 254 H Phys Exam - Physical Examination Constitutional: NAD laying in bed HEENT: PERRLA, moist MMs, sclera anicteric Neck: no nodes, no JVD, supple Respiratory: no wheezing, no rales, no rhonchi Cardiovascular: RRR, no significant murmur, no rub Gastrointestinal: soft, non-tender, no distention Musculoskeletal: pulses present, edema present (1+ pitting edema B/L LE) Neurological: non-focal, normal sensation Dx/Plan (1) Sepsis Code(s): A41.9 - SEPSIS, UNSPECIFIED ORGANISM Status: Acute Qualifiers: Sepsis type: sepsis due to unspecified organism Qualified Code(s): A41.9 - Sepsis, unspecified organism (2) UTI (urinary tract infection) Status: Acute Qualifiers: Encounter type: subsequent encounter Comment: pseudomonas (3) ROJAS (acute kidney injury) Code(s): N17.9 - ACUTE KIDNEY FAILURE, UNSPECIFIED Status: Acute (4) Acidosis Code(s): E87.2 - ACIDOSIS Status: Acute (5) Acute bilateral deep vein thrombosis (DVT) of iliac veins of lower extremities Code(s): I82.423 - ACUTE EMBOLISM AND THROMBOSIS OF ILIAC VEIN, BILATERAL Status: Acute (6) Paraplegia Code(s): G82.20 - PARAPLEGIA, UNSPECIFIED Status: Chronic (7) Sacral decubitus ulcer Status: Chronic Qualifiers: Pressure ulcer stage: unspecified pressure ulcer stage Qualified Code(s): L89.159 - Pressure ulcer of sacral region, unspecified stage - Plan * BP very low, will DC IV diuretic for now, change ot lasix 40mg po BID for now * will obtain echo to evaluate for RV pressures to check for right sided heart failure, if RV pressures normal patien tlikely had B/LLE edema due to B/L iliac vein thrombosis * cont abx and current medical plan for now with no change from a medical perspective * case and plan d/w patient at length, he understands and agrees with this plan
[2017-08-19] MEDS ORDERED: Furosemide 40 MG TAB PO SCH (14:00)
[2017-08-19] MEDS: Famotidine 20 MG TAB PO SCH (20:49)
[2017-08-20 04:57] LABS: #Eosinphils 0.5 thou/uL (0.0-0.7); #Lymphocytes 1.7 thou/uL (1.20-3.40); #Monocytes 1.2 thou/uL (0.11-0.59); #Neutrophils 4.5 thou/uL (1.40-6.50); %Basophils 0.3 % (0.0-1.0); %Eosinophils 5.8 % (0.0-10.0); %Lymphocytes 21.7 % (21.0-51.0); %Monocytes 14.9 % (0.0-10.0); %Neutrophils 57.2 % (42.0-75.0); Hemoglobin 8.4 g/dL (14.0-18.0); Mean Corpuscular HGB CONC 32.5 g/dL (32.0-36.0); Mean Corpuscular Hemoglobin 29.3 pg (27.0-31.0); Mean Corpuscular Volume 90.1 fl (80.0-94.0); Mean Platelet Volume 6.1 fL (7.4-10.4); Platelet Count 253 thou/uL (130-400); RBC Distribution Width 14.8 % (11.5-14.5); Red Blood Cell (RBC) Count 2.86 mill/uL (4.70-6.10); White Blood Cell (WBC) Count 7.8 thou/uL (4.8-10.8)
[2017-08-20 05:24] LABS: Anion Gap 12 mmol/L (10-20); BUN (Urea Nitrogen) 24 mg/dL (8.4-25.7); Calc. Creatinine Clearance 113 mL/min (70-130); Calcium 8.6 mg/dL (7.8-10.44); Carbon Dioxide 18 mmol/L (22-29); Chloride 114 mmol/L (98-107); Estimated GFR-MDRD Greater than 90; Glucose 90 mg/dL (70-105); Potassium 3.6 mmol/L (3.5-5.1); Sodium 140 mmol/L (136-145)
[2017-08-20 07:16] VITALS: BP 86/45; TEMP 97.7
[2017-08-20] MEDS: Heparin 5,000 UNITS/ML VIAL SC SCH (09:32)
[2017-08-20] MEDS: Potassium Chloride 20 MEQ TAB PO SCH (09:32)
[2017-08-20] MEDS: Cefepime 2 GM, Syringe 2.5 ML in Sodium Chloride 0.9% 10 ML SLOW IVP SCH (09:33)
--- NOTE | 2017-08-20 12:30 | DIS ---
DATE OF ADMISSION: 08/11/2017 DATE OF DISCHARGE: 08/20/2017 ADMITTING DIAGNOSES: 1. Diarrhea. 2. Chronic anemia. 3. History of anticoagulation after bilaterally deep venous thrombosis. 4. Moderate protein malnutrition. 5. Chronic stage IV decubitus ulceration. 6. History of alcohol abuse. 7. Paraplegia with a suprapubic catheter. DISCHARGE DIAGNOSES: 1. Diarrhea, resolved. 2. Anemia, stable. 3. Deep venous thrombosis, stable. Patient has IVC filter per imaging. 4. Moderate protein calorie malnutrition, stable. 5. Chronic stage IV sacral decubitus ulceration, stable. 6. History of alcohol abuse, stable. This is a 62-year-old male who was admitted to the hospital for diarrhea, volume def iciency as well as acute kidney injury. The patient was admitted to the Internal Medicine team and w as also evaluated by Pulmonary Care as well as Palliative Care. The patient was aggressively volume resuscitated and was noted to have severe significant swelling. The patient was then started on Lasi x to have volume diuresis and was noted to have improvement in his functional status. The patient at point in time of discharge had well-formed stools. Denied any nausea, vomiting, diarrhea, constipat ion, chest pain, fevers, chills or shortness of breath. Vital signs were stable. The patient's bloo d pressure was back to his normal in the upper 90s. The patient did not have any neurological defici ts or disorientation. The patient was admitted to the CCU observed for a few days. Once the patient had recovery and his renal function was improving he was moved to the regular floor and monitored ve ry carefully. The patient's creatinine at point in time of admission was 4.7, at time of discharge w as 0.87. The patient was given antibiotics for Pseudomonas aeruginosa for 7 days and cefepime was di scontinued at point in time of discharge. The patient was given a prescription for Levaquin 500 mg t o be taken every day for 3 more days, so that he may complete a 10 day treatment therapy total for hi s medications. This patient's condition at time of discharge was stable. The patient was to be [facility]. Case and plan discussed with the patient's son at [facility] who is the speech and language tutor and power of tax attorney. He understood and agreed with this plan.
[2017-08-20 14:55] VITALS: BMI 28.7
== END 2017-08-20 15:11 | DRG 698 ==
LOC: ERS 12:07 → IMCU/EMU 16:46 → CCU 08-12 00:22 → T4-B 08-13 15:13
PROVIDERS: ADMIT Family Medicine; ATTEND Family Medicine
DX: T83.511A Infection and inflammatory reaction due to indwelling urethral catheter, initial encounter (principal); A41.9 Sepsis, unspecified organism; L89.154 Pressure ulcer of sacral region, stage 4; N17.9 Acute kidney failure, unspecified; E44.0 Moderate protein-calorie malnutrition; E87.2 Acidosis; G82.20 Paraplegia, unspecified; E87.1 Hypo-osmolality and hyponatremia; E86.0 Dehydration; B96.5 Pseudomonas (aeruginosa) (mallei) (pseudomallei) as the cause of diseases classified elsewhere; N39.0 Urinary tract infection, site not specified; N31.9 Neuromuscular dysfunction of bladder, unspecified; D64.9 Anemia, unspecified; R19.7 Diarrhea, unspecified; Z68.28 Body mass index [BMI] 28.0-28.9, adult; E87.6 Hypokalemia; Z86.718 Personal history of other venous thrombosis and embolism; Z79.899 Other long term (current) drug therapy; Y84.6 Urinary catheterization as the cause of abnormal reaction of the patient, or of later complication, without mention of misadventure at the time of the procedure
CPT/HCPCS: 36415; 36416; 71045; 80048; 80053; 80202; 81003; 81015; 82533; 83605; 85007; 85025; 85027; 87040; 87077; 87086; 87186; 87324; 87449; 93005; 93306; 96360; 96361; A4216; J0692; J0696; J1644; J1720; J1940; J3370; J3480; J7050